=== PATIENT | female | born 1935 | race African-American/Black ===

== ENCOUNTER 2016-08-29 13:17 | Inpatient (IN) | payer MEDICAID, MEDICARE ==
[~2016-08-29] VITALS: Ht 157.5 cm; Wt 72.2 kg
--- NOTE | 2016-08-29 13:46 | EKG ---
[address] [address] Test Date: 2016-08-29 Test Time: 13:45:21 Pat Name: JAYNE PUENTES Department: Room: Gender: F Solution Architect: : [id number] Requested By: RICK HOUSTON Order Number: [id number] Reading MD: Moody Mccloud Measurements Intervals [place] Rate: 78 P: 53 KS: 130 QRS: 23 QRSD: 74 T: 38 QT: 464 QTc: 533 Interpretive Statements SINUS RHYTHM PROLONGED QT Electronically Signed On 09-02-2016 12:49:50 CDT by Moody Mccloud
[2016-08-29 14:00] LABS: BASO # 0.1 x10^3/uL (0.0-0.2); BASO % 1 % (0-3); EOS # 0.5 x10^3/uL (0.0-0.7); EOS % 7 % (0-3); HEMATOCRIT 41.7 % (36.0-47.0); LYMPH # 2.1 x10^3/uL (1.0-4.8); LYMPH % 29 % (24-48); MEAN CORPUSCULAR HEMOGLOBIN 30 pg (25-35); MEAN CORPUSCULAR HGB CONC 34 g/dL (31-37); MEAN CORPUSCULAR VOLUME 89 fL (79-100); MONO # 0.8 x10^3/uL (0.0-1.1); MONO % 11 % (0-9); NEUT # 3.9 x10^3uL (1.8-7.7); NEUT % 53 % (31-73); PLATELET COUNT 277 x10^3/uL (140-400); RED BLOOD COUNT 4.69 x10^6/uL (3.50-5.40); RED CELL DISTRIBUTION WIDTH 13.1 % (11.5-14.5); WHITE BLOOD COUNT 7.3 x10^3/uL (4.0-11.0)
--- NOTE | 2016-08-29 14:00 | PHYS DOC ---
Past History Past Medical History: CVA, High Cholesterol, Hypertension Smoking: Cigarettes Alcohol Use: None Drug Use: None Adult General Chief Complaint Chief Complaint: MULTIPLE COMPLAINTS HPI HPI 80-year-old female presenting to the emergency department with generalized fatigue and malaise over the past few days with a dry mouth. She feels weak that is worse with walking and improved with rest and tired. She denies cough or pain on urination. She denies nausea or vomiting. She does have a pain that is intermittent in the right side of her chest that is nonradiating mild and is been present for 24 hours. Review of systems is negative for fevers chills cough polyuria or dysuria. All other review of systems is negative unless otherwise noted in history of present illness. Pertinent physical exam findings showed mild tenderness to the chest wall on the right side without erythema or ecchymosis. Abdomen is soft and nontender. Otherwise the patient is neurologically intact with normal range of motion of the neck. ED course: 80-year-old female presenting to the emergency department today with generalized fatigue and malaise. Vital signs afebrile. Chronic hypertension present. Pulse normal. Saturating well. Labs sent. CBC unremarkable. CT the abdomen pelvis obtained. CT unremarkable for acute pathology. Blood work shows hypokalemia otherwise unremarkable. Troponin negative. Pt then admitted under obs status as directed by admitting physician for chest pain r/o. Review of Systems Review of Systems SEE ABOVE. Allergies Allergies Allergies Coded Allergies Type Severity Reaction Last Updated Verified egg Allergy Intermediate 08/29/16 Yes Physical Exam Physical Exam Constitutional: Well developed, well nourished, no acute distress, non-toxic appearance. HENT: Normocephalic, atraumatic, bilateral external ears normal, oropharynx moist, no oral exudates, nose normal. [] Eyes: PERRLA, EOMI, conjunctiva normal, no discharge. [] Neck: Normal range of motion, no tenderness, supple, no stridor. Cardiovascular:Heart rate regular rhythm, no murmur [] Lungs & Thorax: Bilateral breath sounds clear to auscultation Abdomen: Bowel sounds normal, soft, no tenderness, no masses, no pulsatile masses. [] Skin: Warm, dry, no erythema, no rash. [] Back: No tenderness, no CVA tenderness. Extremities: No tenderness, no cyanosis, no clubbing, ROM intact, no edema. [] Neurologic: Alert and oriented X 3, normal motor function, normal sensory function, no focal deficits noted. [] Psychologic: Affect normal, judgement normal, mood normal. EKG EKG [] EKG shows sinus rhythm with a regular rate. Plush is leftward. ST segments show a less than 1 mm subtle repolarization in the V2 through V5 leads the patient's potassium is low which could be cause of this. Radiology/Procedures Radiology/Procedures [] Course & Med Decision Making Course & Med Decision Making Pertinent Labs and Imaging studies reviewed. (See chart for details) [] Dragon Disclaimer Dragon Disclaimer This chart was dictated in whole or in part using Voice Recognition software in a busy, high-work load, and often noisy Emergency Department environment. It may contain unintended and wholly unrecognized errors or omissions. Departure Departure: Impression: Primary Impression: Malaise and fatigue Additional Impressions: Hypokalemia ST segment depression Disposition: ADMITTED INPATIENT Condition: STABLE Referrals: NON,STAFF (PCP) DIANE JULIAN MD Patient Instructions: Fatigue, Potassium Content of Foods, Potassium Salts tablets, extended-release tablets or capsules Scripts Potassium Chloride (POTASSIUM CHLORIDE) 10 Meq Capsule.er 1 CAP PO DAILY, #5 CAP 1 Refill Prov: RICK HOUSTON MD 08/29/16 Problem Qualifiers RICK HOUSTON MD August 29, 2016 14:00
--- NOTE | 2016-08-29 14:10 | RAD ---
Indication fatigue. Back pain. Right upper quadrant pain. PA and lateral views of the chest were obtained. No prior imaging is available. Heart size is at the upper limits of normal. There is no gross congestive heart failure. There is elevation of the left hemidiaphragm the chronicity of which is uncertain. An acute parenchymal infiltrate is not seen. Significant pleural fluid is not present. There is no pneumothorax. The bony structures appear grossly intact. IMPRESSION: No definite acute or focal process seen in the chest
[2016-08-29 14:20] LABS: ALBUMIN 3.8 g/dL (3.4-5.0); CALCIUM 9.3 mg/dL (8.5-10.1); CREATININE 0.8 mg/dL (0.6-1.0); DIRECT BILIRUBIN 0.1 mg/dL (0.0-0.2); GFR 83.5; POTASSIUM 3.3 mmol/L (3.5-5.1); TOTAL BILIRUBIN 0.5 mg/dL (0.2-1.0); TOTAL PROTEIN 7.8 g/dL (6.4-8.2)
--- NOTE | 2016-08-29 14:32 | RAD ---
Indication right upper quadrant abdominal pain and flank pain. Axial images were obtained. No prior imaging of the abdomen or pelvis is available. No IV or gastrointestinal contrast was administered. No acute or significant finding is seen at either lung base. The liver and spleen appear unremarkable. The gallbladder appears grossly normal. No pancreatic abnormality is seen. There is a 3 cm right renal cyst. The adrenal glands appear normal. There are a few small right renal calculi. There are occasional very small calcific deposits along the right ureter but these appear to be outside the course of the ureter. There is no definite hydronephrosis hydroureter or calcification seen within either ureter. An acute finding in the abdomen is not seen. The appendix is seen in the right lower quadrant and appears unremarkable. An acute finding in the pelvis is not seen. Degenerative changes are seen in the lumbar spine. IMPRESSION: No acute finding seen in the abdomen or pelvis. Right renal cyst. Occasional minute right intrarenal calculi PQRS Compliance Statement: One or more of the following individualized dose reduction techniques were utilized for this examination: 1. Automated exposure control 2. Adjustment of the mA and/or kV according to patient size 3. Use of iterative reconstruction technique
[2016-08-29] MEDS ORDERED: POTA10CA PO (14:37)
[2016-08-29 14:57] LABS: BILIRUBIN,URINE NEG (NEG); CLARITY,URINE CLEAR; COLOR,URINE YELLOW; GLUCOSE,URINE NEG (NEG); NITRITE,URINE NEG (NEG); UROBILINOGEN,URINE 0.2 mg/dL (0.2 mg/dL)
[2016-08-29 14:58] LABS: BACTERIA,URINE FEW /HPF (0-FEW); SQUAMOUS EPITHELIAL CELL,UR FEW /LPF
[2016-08-29] MEDS ORDERED: MORPHINE SULFATE 2 MG/ML DISP.SYRIN. IV PRN (15:00)
[2016-08-29] MEDS ORDERED: NITROGLYCERIN SUBLINGUAL 0.4 MG BOTTLE OF 25. SL PRN (15:00)
[2016-08-29] MEDS ORDERED: ONDANSETRON PF 4 MG/2 ML VIAL. IV PRN (15:00)
[2016-08-29] MEDS ORDERED: POTASSIUM CHLORIDE 20 MEQ TABLET.ER. PO ONE (15:30)
[2016-08-29 16:22] VITALS: BP 177/77
[2016-08-29 16:24] VITALS: BP 177/77
--- NOTE | 2016-08-29 17:05 | NUR ---
The patient, JAYNE PUENTES, 80 y/o, F admitted by JUSTYN VIERA DO, was given written information regarding hospital policies, unit procedures and contact persons. Valuables were checked and left with patient. Pt states she has pain on her right side and across her lower back; pt denied any chest pain. Pt lives in [place] but comes to visit her daughter for 3 months each year. Pt states these symptoms started this morning and she felt weak/dizzy this am too. Will continue to monitor.
[2016-08-29] MEDS ORDERED: ATOR40TA59 PO (17:09)
[2016-08-29] MEDS ORDERED: AMLO1CAP15 PO (17:09)
[2016-08-29] MEDS ORDERED: ASPI-630 PO (17:09)
[2016-08-29] MEDS ORDERED: HYDR25TA9 PO (17:09)
[2016-08-29 19:45] VITALS: BP 160/74
[2016-08-30 02:28] LABS: BASO # 0.1 x10^3/uL (0.0-0.2); BASO % 1 % (0-3); EOS # 0.5 x10^3/uL (0.0-0.7); EOS % 7 % (0-3); HEMATOCRIT 37.5 % (36.0-47.0); HEMOGLOBIN 12.6 g/dL (12.0-15.5); LYMPH # 1.8 x10^3/uL (1.0-4.8); LYMPH % 26 % (24-48); MEAN CORPUSCULAR HEMOGLOBIN 30 pg (25-35); MEAN CORPUSCULAR HGB CONC 34 g/dL (31-37); MEAN CORPUSCULAR VOLUME 89 fL (79-100); MONO # 0.7 x10^3/uL (0.0-1.1); MONO % 10 % (0-9); NEUT % 56 % (31-73); PLATELET COUNT 242 x10^3/uL (140-400); RED BLOOD COUNT 4.21 x10^6/uL (3.50-5.40); RED CELL DISTRIBUTION WIDTH 12.6 % (11.5-14.5); WHITE BLOOD COUNT 7.2 x10^3/uL (4.0-11.0)
[2016-08-30 02:34] LABS: CALCIUM 8.8 mg/dL (8.5-10.1); CREATININE 0.8 mg/dL (0.6-1.0); GFR 83.5; POTASSIUM 3.3 mmol/L (3.5-5.1)
[2016-08-30 05:48] VITALS: BP 168/63
[2016-08-30] MEDS ORDERED: POTASSIUM CHLORIDE 20 MEQ TABLET.ER. PO ONE (08:15)
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
[2016-08-30] MEDS ORDERED: LISINOPRIL 20 MG TABLET PO SCH (09:00)
[2016-08-30] MEDS ORDERED: amLODIPine BESYLATE 10 MG TABLET PO SCH (09:00)
[2016-08-30] MEDS ORDERED: POTASSIUM CHLORIDE 10 MEQ CAPSULE.ER. PO SCH (09:00)
[2016-08-30] MEDS ORDERED: ATORVASTATIN CALCIUM 20 MG TABLET PO SCH (09:00)
[2016-08-30] MEDS ORDERED: hydroCHLOROthiazide 25 MG TABLET PO SCH (09:00)
[2016-08-30] MEDS ORDERED: ASPIRIN 81 MG TAB.CHEW PO SCH (09:00)
[2016-08-30] MEDS ORDERED: METOPROLOL TART IMMED RELEASE 25 MG TABLET PO SCH (09:45)
[2016-08-30] MEDS ORDERED: ENOXAPARIN 40 MG/0.4 ML DISP.SYRIN. SQ SCH (10:00)
[2016-08-30 11:00] VITALS: BP 134/71
--- NOTE | 2016-08-30 14:00 | RAD ---
Indication bilateral carotid bruits. Grayscale color Doppler and spectral imaging was performed. The examination was targeted to the carotid bifurcations. On the left there is moderately severe plaquing at the carotid bifurcation. The color Doppler images suggest moderate turbulence. The common carotid waveform and velocities are normal. In the internal carotid there are elevated peak systolic and diastolic velocities. Corresponding measurements are approximately 155 and 30 cm/s respectively. These values would be indicative of stenosis in the 50-69% range. The external carotid has a normal appearance. The vertebral is patent and demonstrates normal directional flow. On the right there is moderately heavy plaquing similar to the contralateral side. Color Doppler images demonstrate moderate turbulence. The common carotid waveform and velocities are normal. At the bulb there are increased systolic and diastolic velocities of approximately 186 between 50 and 69%. indicative of stenosis in the 50-69% range. The external carotid has an elevated peak velocity compatible with incidental stenosis in this vessel. The proximal internal carotid has substantially elevated peak systolic and diastolic velocities of approximately 270 and 70 cm/s respectively indicative of stenosis greater than 70%. 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 Stenosis on the right is estimated at greater than 70%. Stenosis on the left is estimated between 50 and 69%. 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 Stenosis calculations for doppler studies are derived from validated velocity criteria which are known to correlate with NASCET methodology of determining stenosis.
--- NOTE | 2016-08-30 15:33 | CARD ---
APPROVED REPORT EXAM: Two-dimensional and M-mode echocardiogram with Doppler and color Doppler. Other Information Quality : Average Rhythm : NSR INDICATION Abnormal ECG Hypertension/HCVD 2D DIMENSIONS Left Atrium(2D)4.0 (1.6-4.0cm)IVSd1.0 (0.7-1.1cm) Aortic Root(2D)2.5 (2.0-3.7cm)LVDd4.5 (3.9-5.9cm) LVOT Diameter2.0 (1.8-2.4cm)PWd1.1 (0.7-1.1cm) LVDs2.9 (2.5-4.0cm)FS (%) 35.4 % SV60.4 mlLVEF(%)65.0 (>50%) Aortic Valve AoV Peak Reese.124.9cm/sAoV VTI30.4cm AO Peak GR.6.2mmHgLVOT Peak Reese.129.4cm/s LVOT VTI 28.11cmAO Mean GR.4mmHg REFUGIO (VMAX)3.04ff1DMI (VTI)2.79cm2 Mitral Valve MV E Qnlyuihs70.7cm/sMV E Peak Gr.3mmHg MV DECEL [id number] A Fmpyrjvv87.1cm/s MV E Mean Gr.1mmHgMV NDB46pz E/A Ratio0.9MV A Daelpwnt555to MVA (PHT)3.11cm2 Tricuspid Valve TR P. Xikylsac089tr/sRAP LHWUSEQV8iqBz TR Peak Gr.69fhBvAVDT60sxMp Pulmonary Vein S1 Wchanptx78.0cm/sD2 Mwrxzvql32.4cm/s LEFT VENTRICLE The left ventricle is normal size. There is normal left ventricular wall thickness. Left ventricle sy stolic function is The Ejection Fraction is 60-65%. There is normal LV segmental wall motion. The lef t ventricular diastolic function and filling is normal for age. There is no ventricular septal defect visualized. RIGHT VENTRICLE The right ventricle is normal size. The right ventricular systolic function is normal. ATRIA The left atrium size is normal. The right atrium size is normal. The interatrial septum is intact wit h no evidence for an atrial septal defect or patent foramen ovale as noted on 2-D or Doppler imaging. AORTIC VALVE The aortic valve is normal in structure and function. The aortic valve is trileaflet. Doppler and Col or Flow revealed no significant aortic regurgitation. There is no significant aortic valvular stenosi s. MITRAL VALVE The mitral valve is normal in structure and function. There is no mitral valve stenosis. Doppler and Color Flow revealed no mitral valve regurgitation noted. TRICUSPID VALVE The tricuspid valve is normal in structure and function. Doppler and Color Flow revealed trace tricus pid regurgitation. The PA pressure was estimated at 14 mmHg. There is no tricuspid valve stenosis. PULMONIC VALVE The pulmonic valve is not well visualized. Doppler and Color Flow revealed no pulmonic valvular regur gitation. There is no pulmonic valvular stenosis. GREAT VESSELS The aortic root is normal in size. Normal pulmonary venous flow (Doppler). The IVC is normal in size and collapses >50% with inspiration. PERICARDIAL EFFUSION There is no evidence of significant pericardial effusion. Critical Notification Critical Value: No <Conclusion> Left ventricle systolic function is The Ejection Fraction is 60-65%. There is normal LV segmental wall motion.
--- NOTE | 2016-08-30 16:41 | NUR ---
Echo normal, patient given option and encouraged to stay for stress test, patient also given option to d/c home and f/u outpatient. Patient wishes to go home. Patient dismissed to home with daughter. IV site d/c'd per protocol without difficulty. Reviewed home medications, follow-up instructions, and reasons to seek immediate medical attention with patient. Received verbalization of understanding, denies questions/needs. Patient awaiting ride home at this time.
--- NOTE | 2016-08-30 19:16 | ACF ---
Admission Criteria Forms Admission Criteria Met?: No DRE XIE Aug 30, 2016 19:16 RICK HOUSTON MD Sep 01, 2016 06:40
[2016-08-31] MEDS ORDERED: POTASSIUM CHLORIDE 20 MEQ TABLET.ER. PO SCH (08:00)
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
== END 2016-08-30 17:24 | disposition home or self-care (01) | DRG 641 ==
LOC: ER 13:17 → 1 SOUTH 15:02 → ER 15:02 → OBSVTOIN 08-30 08:47
PROVIDERS: ADMIT Family Medicine; ATTEND Family Medicine
DX: E87.6 Hypokalemia (principal); E78.00 Pure hypercholesterolemia, unspecified; E78.5 Hyperlipidemia, unspecified; G89.29 Other chronic pain; M25.559 Pain in unspecified hip; I10 Essential (primary) hypertension; M19.90 Unspecified osteoarthritis, unspecified site; R00.2 Palpitations; R94.31 Abnormal electrocardiogram [ECG] [EKG]; N20.0 Calculus of kidney; N28.1 Cyst of kidney, acquired; Z86.73 Personal history of transient ischemic attack (TIA), and cerebral infarction without residual deficits; Z87.891 Personal history of nicotine dependence; Z91.012 Allergy to eggs; Z90.710 Acquired absence of both cervix and uterus; Z83.3 Family history of diabetes mellitus; Z82.3 Family history of stroke; Z82.49 Family history of ischemic heart disease and other diseases of the circulatory system
CPT/HCPCS: 36415; 71020; 74176; 80048; 80061; 80076; 81001; 83605; 83690; 83735; 83880; 84484; 85027; 93005; 93306; 93880; G0378; G0379; J1650; 99285-25

== ENCOUNTER 2017-07-25 03:14 | Observation (INO) | payer MEDICARE, MEDICAID ==
[~2017-07-25] VITALS: Ht 157.5 cm; Wt 74.0 kg
[~2017-07-25 03:14] MED LIST: AMLO1CAP15 PO; ASPI-630 PO; ATOR40TA59 PO; HYDR25TA9 PO; POTA10CA PO
[2017-07-25 04:33] LABS: BASO % 0 % (0-3); EOS # 0.5 x10^3/uL (0.0-0.7); EOS % 6 % (0-3); HEMATOCRIT 43.6 % (36.0-47.0); HEMOGLOBIN 14.6 g/dL (12.0-15.5); LYMPH # 2.4 x10^3/uL (1.0-4.8); LYMPH % 28 % (24-48); MEAN CORPUSCULAR HEMOGLOBIN 30 pg (25-35); MEAN CORPUSCULAR HGB CONC 34 g/dL (31-37); MEAN CORPUSCULAR VOLUME 89 fL (79-100); MONO % 12 % (0-9); NEUT # 4.6 x10^3uL (1.8-7.7); NEUT % 54 % (31-73); PLATELET COUNT 298 x10^3/uL (140-400); RED BLOOD COUNT 4.87 x10^6/uL (3.50-5.40); RED CELL DISTRIBUTION WIDTH 13.1 % (11.5-14.5); WHITE BLOOD COUNT 8.5 x10^3/uL (4.0-11.0)
[2017-07-25 04:43] LABS: BACTERIA,URINE MANY /HPF (0-FEW); BILIRUBIN,URINE NEG (NEG); CLARITY,URINE CLOUDY; COLOR,URINE AMBER; GLUCOSE,URINE NEG (NEG); NITRITE,URINE POS (NEG); SQUAMOUS EPITHELIAL CELL,UR OCC /LPF; UROBILINOGEN,URINE 0.2 mg/dL (0.2 mg/dL)
[2017-07-25 04:43] LABS: CALCIUM 9.3 mg/dL (8.5-10.1); CREATININE 0.8 mg/dL (0.6-1.0); DIRECT BILIRUBIN 0.1 mg/dL (0.0-0.2); GFR 83.3; POTASSIUM 3.5 mmol/L (3.5-5.1); TOTAL BILIRUBIN 0.7 mg/dL (0.2-1.0); TOTAL PROTEIN 7.6 g/dL (6.4-8.2)
[2017-07-25] MEDS ORDERED: IV NORMAL SALINE 50ML 50 ML ONE (05:06)
[2017-07-25] MEDS ORDERED: cefTRIAXone SODIUM 1 GM VIAL IV ONE (05:07)
[2017-07-25] MEDS ORDERED: CONTRAST GIVEN MC PRN (05:15)
[2017-07-25] MEDS ORDERED: IOHEXOL 300 MG/ML 75 ML VIAL. IV ONE (05:15)
--- NOTE | 2017-07-25 05:48 | PHYS DOC ---
Past History Past Medical History: CVA, High Cholesterol, Hypertension Past Surgical History: Hysterectomy, Other Smoking: Cigarettes Alcohol Use: None Drug Use: None Adult General Chief Complaint Chief Complaint: ABDOMINAL PAIN HPI HPI 81-year-old female presenting the emergency department today with right lower quadrant abdominal pain and flank pain. She also complaints of nausea lightheadedness. This was going on for approximately 3-4 hours. Her pain is 7 out of 10 is sharp shooting nonradiating and without alleviating factors. Associated with mild headache. Review of systems is negative for chest pain shortness of breath fevers or chills. All other review of systems is negative unless otherwise noted in history of present illness. ED course: 81-year-old female presenting to the emergency department today with right lower quadrant abdominal pain and flank pain. On arrival she is afebrile with normal heart rate. Blood pressure mildly elevated. On examination she has mild pain in the right lower quadrant without rebound tenderness or guarding. Equivocal McBurney's point. Negative Jauregui sign. Blood work ordered. IV established. Pain meds and nausea meds were ordered. EKG obtained which shows sinus rhythm with a regular rate. ST segments congruent. Not suggestive of ACS. A few PACs noted. Urinalysis suggestive of infection. We'll give 1 g of Rocephin here in the emergency room. CT the abdomen pelvis pending at the time of sign out at 6 AM. Patient is signed out to Dr. Faulkner with plans to follow- up on CT of the abdomen pelvis. Plan is to admit the patient for treatment with IV antibiotics for urinary tract infection. Review of Systems Review of Systems SEE ABOVE. Current Medications Current Medications Current Medications Medications (Trade) Dose Ordered Sig/Denilson Start Time Stop Time Status Last Admin Dose Admin Ceftriaxone Sodium 1 gm/ Sodium Chloride 50 ml @ 100 mls/hr 1X ONCE 07/25/17 05:00 07/25/17 05:29 DC 07/25/17 05:15 100 MLS/HR Ceftriaxone Sodium (Rocephin) 1 gm STK-MED ONCE 07/25/17 05:07 07/25/17 05:08 DC Info (Do NOT chart on this entry -- for MONITORING) 1 each PRN DAILY PRN 07/25/17 05:15 07/27/17 05:14 Iohexol (Omnipaque 300 Mg/ml) 75 ml 1X ONCE 07/25/17 05:15 07/25/17 05:16 DC Sodium Chloride 50 ml @ As Directed STK-MED ONCE 07/25/17 05:06 07/25/17 05:07 DC Allergies Allergies Allergies Coded Allergies Type Severity Reaction Last Updated Verified egg Allergy Intermediate 08/29/16 Yes Physical Exam Physical Exam SEE ABOVE Constitutional: Well developed, well nourished, no acute distress, non-toxic appearance. [] HENT: Normocephalic, atraumatic, bilateral external ears normal, oropharynx moist, no oral exudates, nose normal. [] Eyes: PERRLA, EOMI, conjunctiva normal, no discharge. [] Neck: Normal range of motion, no tenderness, supple, no stridor. [] Cardiovascular:Heart rate regular rhythm, no murmur [] Lungs & Thorax: Bilateral breath sounds clear to auscultation [] Abdomen: Bowel sounds normal, soft, mild tenderness in the rlq, no masses, no pulsatile masses. [] Skin: Warm, dry, no erythema, no rash. [] Back: No tenderness, no CVA tenderness. [] Extremities: No tenderness, no cyanosis, no clubbing, ROM intact, no edema. [] Neurologic: Alert and oriented X 3, normal motor function, normal sensory function, no focal deficits noted. [] Psychologic: Affect normal, judgement normal, mood normal. [] Current Patient Data Vital Signs Vital Signs Date Time Temp Pulse Resp B/P (MAP) Pulse Ox O2 Delivery O2 Flow Rate FiO2 07/25/17 03:47 97.8 85 19 96 Room Air Lab Results Laboratory Tests Test 07/25/17 04:08 07/25/17 04:10 Urine Collection Type Unknown Urine Color Gricelda Urine Clarity Cloudy Urine pH 7.5 Urine Specific [place] 1.020 Urine Protein Neg (NEG-TRACE) Urine Glucose (UA) Neg mg/dL (NEG) Urine Ketones (Stick) Neg mg/dL (NEG) Urine Blood Mod (NEG) Urine Nitrite Pos (NEG) Urine Bilirubin Neg (NEG) Urine Urobilinogen Dipstick 0.2 mg/dL (0.2 mg/dL) Urine Leukocyte Esterase Trace (NEG) Urine RBC 3-5 /HPF (0-2) Urine WBC 11-20 /HPF (0-4) Urine Squamous Epithelial Cells Occ /LPF Urine Bacteria Many /HPF (0-FEW) White Blood Count 8.5 x10^3/uL (4.0-11.0) Red Blood Count 4.87 x10^6/uL (3.50-5.40) Hemoglobin 14.6 g/dL (12.0-15.5) Hematocrit 43.6 % (36.0-47.0) Mean Corpuscular Volume 89 fL (79-100) Mean Corpuscular Hemoglobin 30 pg (25-35) Mean Corpuscular Hemoglobin Concent 34 g/dL (31-37) Red Cell Distribution Width 13.1 % (11.5-14.5) Platelet Count 298 x10^3/uL (140-400) Neutrophils (%) (Auto) 54 % (31-73) Lymphocytes (%) (Auto) 28 % (24-48) Monocytes (%) (Auto) 12 % (0-9) H Eosinophils (%) (Auto) 6 % (0-3) H Basophils (%) (Auto) 0 % (0-3) Neutrophils # (Auto) 4.6 x10^3uL (1.8-7.7) Lymphocytes # (Auto) 2.4 x10^3/uL (1.0-4.8) Monocytes # (Auto) 1.0 x10^3/uL (0.0-1.1) Eosinophils # (Auto) 0.5 x10^3/uL (0.0-0.7) Basophils # (Auto) 0.0 x10^3/uL (0.0-0.2) Sodium Level 141 mmol/L (136-145) Potassium Level 3.5 mmol/L (3.5-5.1) Chloride Level 104 mmol/L (98-107) Carbon Dioxide Level 28 mmol/L (21-32) Anion Gap 9 (6-14) Blood Urea Nitrogen 14 mg/dL (7-20) Creatinine 0.8 mg/dL (0.6-1.0) Estimated GFR (Cockcroft-Gault) 83.3 Glucose Level 112 mg/dL (70-99) H Calcium Level 9.3 mg/dL (8.5-10.1) Total Bilirubin 0.7 mg/dL (0.2-1.0) Direct Bilirubin 0.1 mg/dL (0.0-0.2) Aspartate Amino Transferase (AST) 17 U/L (15-37) Alanine Aminotransferase (ALT) 19 U/L (14-59) Alkaline Phosphatase 117 U/L (46-116) H Troponin I Quantitative < 0.017 ng/mL (0-0.055) Total Protein 7.6 g/dL (6.4-8.2) Albumin 4.0 g/dL (3.4-5.0) Lipase 121 U/L (73-393) EKG EKG [] Radiology/Procedures Radiology/Procedures [] Course & Med Decision Making Course & Med Decision Making Pertinent Labs and Imaging studies reviewed. (See chart for details) [] Dragon Disclaimer Dragon Disclaimer This electronic medical record was generated, in whole or in part, using a voice recognition dictation system. Departure Departure: Impression: Primary Impression: Abdominal pain Additional Impression: Urinary tract infection Disposition: ADMITTED INPATIENT Condition: STABLE Referrals: NON,STAFF (PCP) Problem Qualifiers RICK HOUSTON MD Jul 25, 2017 05:48
--- NOTE | 2017-07-25 07:02 | EKG ---
[address] [address] Test Date: 2017-07-25 Test Time: 03:58:26 Pat Name: JAYNE PUENTES Department: Room: Gender: F Embedded Software Developer: : [id number] Requested By: RICK HOUSTON Order Number: [id number] Reading MD: Measurements Intervals [place] Rate: 87 P: 76 IA: 136 QRS: 43 QRSD: 76 T: 64 QT: 364 QTc: 444 Interpretive Statements SINUS RHYTHM VENTRICULAR PREMATURE COMPLEX(ES) ABNORMAL ECG RI6.01 No previous ECG available for comparison
--- NOTE | 2017-07-25 07:11 | RAD ---
CT abdomen and pelvis with contrast: Reason for examination: Right lower quadrant abdominal pain. Comparison is made to previous study dated 08/29/2016. Helical images were obtained through the abdomen and pelvis with intravenous administration of 75 cc of Omnipaque 300. Reconstruction was performed in sagittal and coronal planes. The lung bases are clear. The heart size is normal with no pericardial effusion seen. No abnormality seen at the liver, gallbladder, spleen, pancreas or adrenal glands. The abdominal aorta shows arteriosclerotic vascular calcification but no aneurysmal dilatation or dissection. No abnormality seen at the inferior vena cava. The right kidney shows a 4.2 cm cystic lesion at the upper pole. No hydronephrosis or obstructive uropathy is seen. No abnormality seen at the appendix. Intestinal tract shows no abnormally dilated loops of bowel or thickened bowel guzman. There is no evidence of diverticulosis or diverticulitis. No abnormality seen at the bladder or vaginal cuff. No abnormal fluid collections or free air are seen in the abdomen. There are degenerative changes at the L5-S1 disc level. IMPRESSION: 4.2 cm cyst at the upper pole of the right kidney. No evidence of obstructive uropathy. No abnormality seen at the appendix. Exposure: One or more of the following individualized dose reduction techniques were utilized for this examination: 1. Automated exposure control 2. Adjustment of the mA and/or kV according to patient size 3. Use of iterative reconstruction technique. Electronically signed by: Maria De Jesus Ayala MD (07/25/2017 7:08 AM) [facility]
[2017-07-25 09:52] VITALS: BP 168/64
--- NOTE | 2017-07-25 11:31 | NUR ---
NSG NOTE; ADMISSION ADMIT TO ROOM 105 AT 0940 FROM ED VIA CART ACCOMP BY EMS PERSONNEL AND DAUGHTER PT LIVES ALONE IN [place]T IN [facility] AND IS HERE VISITING HER DAUGHTER C/O FEELING UNWELL STARTING LAST SAVANNHA WITH DIZZINESS, WEAKNESS AND LOSS OF APPETITE
[2017-07-25] MEDS ORDERED: AMLO1CAP15 PO (12:02)
[2017-07-25] MEDS ORDERED: POTA10TA10 PO (12:02)
[2017-07-25] MEDS ORDERED: HYDR25TA9 PO (12:02)
[2017-07-25] MEDS ORDERED: ATOR40TA59 PO (12:02)
[2017-07-25] MEDS ORDERED: ASPI-630 PO (12:02)
[2017-07-25 14:54] VITALS: BP 157/88
--- NOTE | 2017-07-25 15:28 | HP ---
ADMIT DATE: 07/25/2017 HISTORY OF PRESENT ILLNESS: The patient is an 81-year-old female patient, visiting from [place] as her daughter lives in [facility] and who came to the Emergency Room complaining of right quadrant pain and right flank pain. She did complain also of nausea and lightheadedness. Apparently, this has been going on for approximately 4 hours. Her pain is 7/10, sharp, shooting, nonradiating without any alleviating factors. She denied any nausea, vomiting. Denied any diarrhea or constipation. Denied any dysuria, frequency or hematuria. Denied any chills, rigors or fever. She was investigated, although her lab works are essentially normal except that her urine was cloudy with a pH of 7.5. Her urine was positive for nitrite and leukocyte esterase and had 11-20 wbc's and many bacteria and she was admitted for treatment of urinary tract infection. She was given IV fluid as well as IV Rocephin and was admitted for observation. PAST MEDICAL HISTORY: Significant for hypertension, hyperlipidemia, TIA and generalized osteoarthritis. PAST SURGICAL HISTORY: Significant for cataract extraction from her right eye, total abdominal hysterectomy, bilateral salpingo- oophorectomy, hemorrhoidectomy and right arthroscopic knee surgery. ALLERGIES: She has no known drug allergies. FAMILY HISTORY: She does not know her biological father. Her mother at age of 54 because of a congenital heart disease. She has 3 living brothers and 2 brothers that at their younger age because of alcoholism. One of her living brother has tumor that caused him to be blind. SOCIAL HISTORY: She is , lives alone. She has two daughters and a stepdaughter. She is an ex-smoker, quit 10 years ago. She quit drinking about 30 years ago. 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 REVIEW OF SYSTEMS: She has bilateral cataracts with extraction of the right cataract. Denied any glaucoma or macular degeneration. Denied any earache, tinnitus or sensorineural deafness. Denied any nosebleeds, stuffy nose or postnasal drip. Denied any sore throat, sore tongue, toothache, hoarseness of voice or difficulty swallowing. Denied any nausea, vomiting, diarrhea or constipation. Denied any hematemesis, melena or hematochezia. Denied any dysuria, frequency or hematuria. Did complain of right flank and right lower quadrant pain. Denied any chest pain, shortness of breath, orthopnea, or paroxysmal nocturnal dyspnea. Denied any cough, phlegm or hemoptysis. She did complain of dizziness and lightheadedness. Denied any chills, rigors or fever. PHYSICAL EXAMINATION: GENERAL: On arrival to the Emergency Room, she looked well and was clearly in no apparent respiratory distress, no pallor, jaundice or cyanosis. No lymphadenopathy, no thyromegaly. No jugular venous distension. No lower limb edema. VITAL SIGNS: Her heart rate was 85, blood pressure 138/61, temperature was 97.8, respiratory rate was 18 and oxygen saturation was 96%. HEAD, EYES, EARS, NOSE AND THROAT: Showed normocephalic, atraumatic. NECK: Supple. HEART: Showed normal first and second heart sounds. No gallop, rub or murmur. CHEST: Clear to auscultation. No crepitation or rhonchi. ABDOMEN: Distended, soft, nontender. No guarding or rigidity. No organomegaly. Hernial orifice intact. Bowel sounds normal. NEUROLOGIC: She was awake, alert, responding appropriately. Her cranial nerves intact. EXTREMITIES: She moves her extremities without difficulty. She ambulates with a walker. LABORATORY DATA: Showed a white cell count of 8500, hemoglobin 14.6, hematocrit 44, MCV 80 and platelet count 298,000. Her chemistry showed a serum sodium 141, potassium 3.5, chloride 104, bicarbonate 28, anion gap of 9, BUN 14, creatinine 0.8, estimated GFR was 83 mL per minute. Her glucose was 112, calcium was 9.3. Total bilirubin, AST, ALT, alkaline phosphatase were normal. Her total protein was 7.6, albumin 4 and lipase was 21. Her urinalysis showed the urine was ted, cloudy with a pH of 7.5, specific gravity of 1.020. The urine was negative for protein, glucose, ketones, there was moderate amount of blood, positive for nitrite and trace of leukocyte esterase. There are 3-5 rbc's, 11-20 wbc's, many bacteria. ASSESSMENT AND PLAN: The patient was admitted with urinary tract infection. She was given 1 gram of Rocephin and continued on all her other medications that included atorvastatin 40 mg at bedtime, amlodipine besylate/benazepril 10/40 mg one tablet every other day. She is on aspirin 81 mg once a day, potassium chloride 10 mEq every other day, hydrochlorothiazide 25 mg every other day. Her urine was sent for culture and sensitivity. We will continue with IV Rocephin. Continue all her medication. Repeat her labs tomorrow and she could potentially be discharged home on oral antibiotic. SOTERO YO MD DR: CHERYLE/kristin JOB#: [id number] / [id number]
[2017-07-25 19:15] VITALS: BP 134/76
[2017-07-25 23:08] VITALS: BP 156/68
[2017-07-26 05:22] VITALS: BP 160/75
[2017-07-26 06:35] LABS: HEMATOCRIT 39.4 % (36.0-47.0); HEMOGLOBIN 13.2 g/dL (12.0-15.5); RED BLOOD COUNT 4.39 x10^6/uL (3.50-5.40); RED CELL DISTRIBUTION WIDTH 13.1 % (11.5-14.5); WHITE BLOOD COUNT 5.4 x10^3/uL (4.0-11.0)
[2017-07-26 06:38] LABS: CALCIUM 8.8 mg/dL (8.5-10.1); CREATININE 0.7 mg/dL (0.6-1.0); GFR 97.2; POTASSIUM 3.6 mmol/L (3.5-5.1)
[2017-07-26 08:38] VITALS: BP 160/75
[2017-07-26] MEDS ORDERED: CEFU500T46 PO (08:52)
[2017-07-26] MEDS ORDERED: hydroCHLOROthiazide 25 MG TABLET PO SCH (09:00)
[2017-07-26] MEDS ORDERED: LISINOPRIL 20 MG TABLET PO SCH (09:00)
[2017-07-26] MEDS ORDERED: ATORVASTATIN CALCIUM 20 MG TABLET PO SCH (09:00)
[2017-07-26] MEDS ORDERED: POTASSIUM CHLORIDE 10 MEQ TABLET.ER. PO SCH (09:00)
[2017-07-26] MEDS ORDERED: amLODIPine BESYLATE 10 MG TABLET PO SCH (09:00)
[2017-07-26] MEDS ORDERED: cefTRIAXone IV Push 1 GM VIAL. IVP SCH (09:00)
[2017-07-26] MEDS ORDERED: ASPIRIN 81 MG TAB.CHEW PO SCH (09:00)
--- NOTE | 2017-07-26 10:20 | NUR ---
NSG NOTE; DISCHARGE VERBAL AND WRITTEN DISCHARGE INSTRUCTIONS GIVEN TO PT WITH VERBAL UNDERSTANDING. DISCHARGE TO HOME AT 0950 VIA AMB ACCOMP BY DAUGHTER
--- NOTE | 2017-07-26 20:47 | DS ---
DATE OF DISCHARGE: 07/26/2017 HISTORY OF PRESENT ILLNESS: The patient is an 81-year-old -Micron[place] female patient who is here visiting her daughter from [place] who came to the Emergency Room complaining of right lower quadrant pain. She was investigated extensively in the Emergency Room, was found to have a UTI with urine that was cloudy with a pH of 7.5 and was positive for nitrite and leukocyte esterase with 11-20 wbc's and too many bacteria. The patient was admitted, started on IV Rocephin and did well. PHYSICAL EXAMINATION: GENERAL: When I saw her today, she looked slightly pale, no jaundice, cyanosis, or thyromegaly. No jugular venous distension. No lower limb edema. VITAL SIGNS: Her heart rate was 66, blood pressure was 160/75, temperature was 98.1, respiratory rate was 16, and oxygen saturation was 93% on room air. HEAD, EYES, EARS, NOSE AND THROAT: Showed normocephalic, atraumatic. NECK: Supple. HEART: Showed normal first and second heart sounds with no gallop, rub or murmur. CHEST: Clear to auscultation. No crepitation or rhonchi. ABDOMEN: Distended, soft, nontender. No guarding or rigidity. No organomegaly. Hernial orifice intact. Bowel sounds normal. NEUROLOGIC: She is awake, alert, responding appropriately. Her cranial nerves intact. She moves extremities without difficulty. She ambulates without assistance or assistive devices. LABORATORY DATA: As of this morning showed a white cell count of 5400, hemoglobin 13, hematocrit 39, MCV 90 and platelet count 272,000. Serum sodium was 140, potassium 3.6, chloride 105, bicarbonate 29, anion gap of 6, BUN 11, creatinine 0.7, estimated GFR was 97 mL per minute. Her glucose was 88 and calcium was 8.8. DISCHARGE MEDICATIONS: The patient was discharged to continue on cefuroxime 250 mg twice a day for 3 days, amlodipine/benazepril 10/40 one capsule every other day, aspirin 81 mg once a day, atorvastatin 40 mg at bedtime, hydrochlorothiazide 25 mg every other day and potassium chloride 20 mEq every other day. FINAL DISCHARGE DIAGNOSES: Urinary tract infection, hypertension, hyperlipidemia, transient ischemic attack, and generalized osteoarthritis. SOTERO YO MD DR: CHERYLE/kristin JOB#: [id number] / [id number]
[2017-07-26] MEDS ORDERED: LACTOBACILLUS RHAMNOSUS GG 1 CAPSULE. PO SCH (21:00)
[2017-07-27] MEDS ORDERED: ASPIRIN 81 MG TAB.CHEW PO SCH (09:00)
[2017-07-27] MEDS ORDERED: amLODIPine BESYLATE 10 MG TABLET PO SCH (09:00)
[2017-07-27] MEDS ORDERED: LISINOPRIL 20 MG TABLET PO SCH (09:00)
[2017-07-27] MEDS ORDERED: hydroCHLOROthiazide 25 MG TABLET PO SCH (09:00)
[2017-07-27] MEDS ORDERED: POTASSIUM CHLORIDE 10 MEQ TABLET.ER. PO SCH (09:00)
[2017-07-27] MEDS ORDERED: ATORVASTATIN CALCIUM 20 MG TABLET PO SCH (09:00)
== END 2017-07-26 09:50 | disposition home or self-care (01) ==
LOC: ER 03:14 → 1 SOUTH 09:40 → UNDOADMOB 09:40
PROVIDERS: ADMIT Internal Medicine; ATTEND Internal Medicine
DX: N39.0 Urinary tract infection, site not specified (principal); I10 Essential (primary) hypertension; E78.5 Hyperlipidemia, unspecified; M19.90 Unspecified osteoarthritis, unspecified site; E78.00 Pure hypercholesterolemia, unspecified; G45.9 Transient cerebral ischemic attack, unspecified; Z82.1 Family history of blindness and visual loss; Z86.73 Personal history of transient ischemic attack (TIA), and cerebral infarction without residual deficits; Z87.891 Personal history of nicotine dependence
CPT/HCPCS: 36415; 74177; 80048; 80076; 81001; 83690; 84484; 85025; 85027; 87086; 93005; 96365; 96375; 97161; 97165; 99285; G0378; G8978; G8979; G8987; G8988; J0696; Q9967; 87186; G0379